=== PATIENT | female | born 1950 | race Asian ===

== ENCOUNTER 2024-05-20 08:38 | Outpatient (REF) | payer MEDICARE, MEDICAID, SELFPAY ==
[2024-05-20 17:41] LABS: MANUAL DIFF FLAG NO
[2024-05-20 18:19] LABS: Basophils Percent Auto 0.8 % (0-2); Eosinophils Absolute Auto 0.1 X10*3/uL (0.0-0.4); Eosinophils Percent Auto 2.6 % (0-4); Hematocrit 35.6 % (37.0-47.0); Hemoglobin 12.1 g/dl (12.0-16.0); Imm Gran Abs Auto 0.02 X10*3/uL (0.00-0.03); Imm Gran Pct Auto 0.4 % (0.0-0.4); Lymphocytes Absolute Auto 1.5 X10*3/uL (1.2-4.9); Mean Corpuscular Hemoglobin 31.7 pg (27.0-33.0); Mean Corpuscular Volume 93.2 fL (80.0-98.0); Monocytes Absolute Auto 0.3 X10*3/uL (0.1-1.2); Neutrophils Percent Auto 61.2 % (45-73); Platelet Count 305 X10*3/uL (160-400); Red Blood Count 3.82 X10*6/uL (4.20-5.50); Red Cell Distribution Width 13.1 % (11.0-16.0)
[2024-05-20 18:41] LABS: Alanine Aminotransferase 21 U/L (0-31); Albumin Level 4.3 g/dL (3.5-5.0); Aspartate Amino Transferase 27 U/L (5-31); C Reactive Protein < 0.10 mg/dL (< or = 0.50); Erythrocyte Sedimentation Rate 12 MM/HR (0-20); Estimated Glomerular Filt Rate > 60
[2024-05-20 18:57] LABS: Vitamin D 25-OH Total 63.3 ng/mL (>30)
[2024-05-21 05:53] LABS: HBS Num1 0.62 mIU/mL (0-7.99); HBc Num1 0.21 S/CO (0.00-0.79); HBsAGNum1 0.33 S/CO (0.00-0.99); Hepatitis B Core Antibody Nonreactive (Nonreactive); Hepatitis B Surface Antigen Negative (Negative); ~HepC Num1 0.19 S/CO (0.00-0.79); ~Hepatitis B Surface Antibody NONREACTIVE (Nonreactive); ~Hepatitis C Antibody Nonreactive (Nonreactive)
[2024-05-23 15:53] LABS: TS Negative Control Passed; TS Panel A 1; TS Panel B 0; TS Positive Control Passed; TSpotTB Negative (Negative)
[2024-05-27 14:39] LABS: Aldolase 2.6 U/L (<=8.1)
== END 2024-05-20 08:39 | disposition home or self-care (01) ==
LOC: HO.HKASLDS 08:38
PROVIDERS: PCP Physician Assistant Medical; Visit Provider Internal Medicine Rheumatology
DX: G72.49 Other inflammatory and immune myopathies, not elsewhere classified (principal); M81.0 Age-related osteoporosis without current pathological fracture; Z79.60 Long term (current) use of unspecified immunomodulators and immunosuppressants
CPT/HCPCS: 36415; 82040; 82085; 82306; 82310; 82550; 82565; 84450; 84460; 85025; 85652; 86140; 86481; 86704; 86706; 86803; 87340; 99212

== ENCOUNTER 2024-05-20 08:38 | Outpatient (AMB) | payer MEDICARE, MEDICAID, SELFPAY ==
--- NOTE | 2024-05-20 08:44 | MHC.OFFVIS ---
Vital Signs 05/20/24 08:46 Height 5 ft 2 in Weight 109 lb 4 oz BMI 20.0 BP 118/66 Blood Pressure Location Lt brachial Position Sitting Pulse 70 Pulse Source Pulse Oximeter Pulse Oximetry (%) 98 Oxygen Delivery Method Room Air Intake Visit Reasons: Arthralgia Intake Note: Patient presetns today for follow up on arthralgia. She was last seen in the office on 09/30/23. Radio Television Announcer Services: Radio Television Announcer Offered & Declined Radio Television Announcer Name: luis Accompanied by: Daughter Allergies statin Allergy (Mild, Uncoded 05/20/24 08:49) Muscle Pain bactrim Adverse Reaction (Unknown, Uncoded 05/20/24 08:49) Unknown HPI HPI Arthralgia: Details: She feels well. 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 Patient was living in active lifestyle in [facility]. She denies weakness, dysphagia, dyspnea, pleurisy, or any new rash. Denies joint pain. She does not take calcium or vitamin supplement. She does not consume dairy products. She does not like calcium tablets because they are large tablets. Last Prolia was in 05/2023. She missed January dose because she was in [facility]. [facility] Medical History (Updated 05/20/24 @ 10:35 by Paddy Hernandez MD) Arthralgia Social History (Updated 05/20/24 @ 08:53 by Carolina Camp CMA) Household Members: Spouse Alcohol intake: never Patient Tobacco Use Status: Never used Tobacco Review of Systems Const All systems reviewed & are unremarkable except as noted in HPI and below Physical Exam Vital Signs: Last Vital Signs Pulse 70 05/20/24 08:46 BP 118/66 05/20/24 08:46 Pulse Ox 98 05/20/24 08:46 Oxygen Delivery Method Room Air 05/20/24 08:46 BMI result Body Mass Index 20.0 Const Other: General: Comfortable CVS: RRR Respiratory: clear to auscultation bilaterally. Good respiratory effort Skin: No lesions seen MSK: No tenderness of any joint. Good range of motion of upper extremity and lower extremity. Power 5/5 upper extremity and lower extremity. 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 History of long-term atorvastatin use. Treated with IVIG. Methotrexate started due to elevation in CK 06/2022, which has stabilized CK levels. Asymptomatic. Code(s): G72.49 - Other inflammatory and immune myopathies, not elsewhere classified Category: Medical Plan: Continue to monitor clinically I have ordered labs for disease and drug monitoring on high-risk medication Continue methotrexate 20 mg once weekly Continue folic acid 1 mg daily Return to clinic in 3 months (2) Osteoporosis: Comment: Previously treated with alendronate for 10 years, abaloparatide 01/09/2021 18 months, Prolia 08/14/2023-, missed january 2024 Prolia dose because patient was in [facility]. Patient is unable to tolerate taking calcium and vitamin-D supplement due to pill size. Code(s): M81.0 - Age-related osteoporosis without current pathological fracture Category: Medical Qualifiers: Osteoporosis type: age-related Presence of current pathological fracture: without current pathological fracture Qualified Code(s): M81.0 - Age-related osteoporosis without current pathological fracture Plan: I recommend that she obtain OTC calcium 500 mg and vitamin-D 1000 IU gummies. Take 2 daily. Thomas MINOR. She will be scheduled for nurse visit once approved. Labs prior to Prolia ordered this visit: Calcium, vitamin-D, creatinine Bone density due after March 11, 2025 Orders: Orders Erythrocyte Sedimentation Rate Today G72.49 - Other inflammatory and immune myopathies, not elsewhere classified, M81.0 - Age-related osteoporosis without current pathological fracture Alanine Aminotransferase Today Z79.60 - termite control servicer (current) use of unspecified immunomodulators and immunosuppressants Aspartate Amino Transferase Today Z79.60 - [facility] (current) use of unspecified immunomodulators and immunosuppressants Hepatitis B,C Profile Today G72.49 - Other inflammatory and immune myopathies, not elsewhere classified, M81.0 - Age-related osteoporosis without current pathological fracture Complete Blood Count Auto Diff Today G72.49 - Other inflammatory and immune myopathies, not elsewhere classified, M81.0 - Age-related osteoporosis without current pathological fracture Creatine Kinase Total Today G72.49 - Other inflammatory and immune myopathies, not elsewhere classified, M81.0 - Age-related osteoporosis without current pathological fracture Calcium Today M81.0 - Age-related osteoporosis without current pathological fracture Albumin Level Today M81.0 - Age-related osteoporosis without current pathological fracture Aldolase Today G72.49 - Other inflammatory and immune myopathies, not elsewhere classified, M81.0 - Age-related osteoporosis without current pathological fracture C Reactive Protein Today G72.49 - Other inflammatory and immune myopathies, not elsewhere classified, M81.0 - Age-related osteoporosis without current pathological fracture Creatinine Today Z79.60 - termite control servicer (current) use of unspecified immunomodulators and immunosuppressants T Spot TB Today G72.49 - Other inflammatory and immune myopathies, not elsewhere classified, M81.0 - Age-related osteoporosis without current pathological fracture Vitamin D 25-OH Total Today M81.0 - Age-related osteoporosis without current pathological fracture Medications: New methotrexate sodium 20 mg (8 x 2.5 mg) PO QWEEK 96 tabs 0RF folic acid Replace previous prescriptions 1 mg PO DAILY 90 tabs 3RF Coding Level of Care Code Est Pt Level 4 (98566) Complex EM visit Add On G2211 Diagnoses Autoimmune necrotizing myopathy G72.49 Age-related osteoporosis without current pathological fracture M81.0 Osteoporosis type: age-related Presence of current pathological fracture: without current pathological fracture
[2024-05-20 08:46] VITALS: BP 118/66; PULSE 70; O2SAT 98
== END 2024-05-20 09:26 | disposition home or self-care (01) ==
PROVIDERS: PCP Physician Assistant Medical; Visit Provider Internal Medicine Rheumatology
DX: G72.49 Other inflammatory and immune myopathies, not elsewhere classified (principal); M81.0 Age-related osteoporosis without current pathological fracture
CPT/HCPCS: 99214; G2211

== ENCOUNTER 2024-06-03 13:07 | Outpatient (AMB) | payer MEDICARE, MEDICAID, SELFPAY ==
--- NOTE | 2024-06-03 14:03 | AM.OFFVISNUR ---
Intake Visit Reasons: prolia injection Allergies statin Allergy (Mild, Uncoded 05/20/24 08:49) Muscle Pain bactrim Adverse Reaction (Unknown, Uncoded 05/20/24 08:49) Unknown Office Meds Prolia 60 mg/mL subcutaneous syringe Performing Provider: Paddy Hernandez MD [place] [facility] [place] [facility] [facility] Administered by: Tod Lora RN on 06/03/24 14:03 Dose Route Admin Location Dispensed Lot Number Expiration Date [facility] Electrician Master 60 mg subcut 1 mL [id number] 11/19/26 92925-688-66 AMGEN Comments: Patient arrived accompanied by her daughter for Prolia 60 mg/mL subcutaneous injection. Patient tolerated the procedure well with no adverse reactions noted. Patient reminded of s/s to be aware of e.g. redness, tenderness, swelling, rash, or pain at the injection site; SOB, or dyspnea. Follow up appointment scheduled for November. Assessment & Plan Assessment & Plan Orders: Orders AMB Denosumab Injection Practice Supplied Today M81.0 - Age-related osteoporosis without current pathological fracture Medications: New Prolia (denosumab) 60 mg subcut ONCE 1 mL 0RF NS M81.0 - Age-related osteoporosis without current pathological fracture Coding
== END 2024-06-03 14:01 | disposition home or self-care (01) ==
PROVIDERS: PCP Physician Assistant Medical; Visit Provider Internal Medicine Rheumatology
DX: M81.0 Age-related osteoporosis without current pathological fracture (principal)

== ENCOUNTER → 2024-06-03 13:07 | Outpatient (BNVA) | payer MEDICARE, MEDICAID, SELFPAY | PROVIDERS: PCP Physician Assistant Medical; Visit Provider Internal Medicine Rheumatology | DX: M81.0 Age-related osteoporosis without current pathological fracture (principal) | CPT/HCPCS: 96372; J0897 ==

== ENCOUNTER 2024-08-18 08:59 | Outpatient (AMB) | payer MEDICARE, MEDICAID, SELFPAY ==
--- NOTE | 2024-08-18 09:06 | MHC.OFFVIS ---
Vital Signs 08/18/24 09:08 Height 5 ft 2.4 in Weight 106 lb 7.732 oz BMI 19.2 BP 130/68 Blood Pressure Location Rt brachial Position Sitting Pulse 64 Pulse Source Pulse Oximeter Pulse Oximetry (%) 99 Oxygen Delivery Method Room Air Intake Visit Reasons: Follow Up 3mo Intake Note: Patient presents today for follow up on arthralgia. Roller Inspector And Mender Name: gigi Information Interpreted: non-clinical & clinical Supervisory Clerk: Supervisory Clerk Present Accompanied by: Daughter Allergies statin Allergy (Mild, Uncoded 05/20/24 08:49) Muscle Pain bactrim Adverse Reaction (Unknown, Uncoded 05/20/24 08:49) Unknown HPI HPI Follow Up 3mo: Details: No new symptoms. She feels well. Denies recent infections, fevers, dyspnea, dysphagia, rash, joint symptoms. She is noncompliant with taking calcium and vitamin-D combination gummies. PFSH Medical History Arthralgia Social History Household Members: Spouse Alcohol intake: never Patient Tobacco Use Status: Never used Tobacco Review of Systems Const All systems reviewed & are unremarkable except as noted in HPI and below Physical Exam Vital Signs: Last Vital Signs Pulse 64 08/18/24 09:08 BP 130/68 08/18/24 09:08 Pulse Ox 99 08/18/24 09:08 Oxygen Delivery Method Room Air 08/18/24 09:08 BMI result Body Mass Index 19.2 Const Other: General: Comfortable CVS: RRR Respiratory: clear to auscultation bilaterally. Good respiratory effort Skin: No lesions seen MSK: No tenderness of any joint. Good range of motion of upper extremity and lower extremity. Power 5/5 upper extremity and lower extremity. 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 Assessment & Plan Assessment & Plan (1) Autoimmune necrotizing myopathy: Comment: Clinical remission on monotherapy with methotrexate. She has mild elevation in CK 04/2024. We discussed the importance of both monitoring clinically and serologically. Rheumatology history: + anti HMGCR ab. History of long-term atorvastatin use. Treated with IVIG. Methotrexate started due to elevation in CK 06/2022, which has stabilized CK levels. Code(s): G72.49 - Other inflammatory and immune myopathies, not elsewhere classified Category: Medical Plan: Continue to monitor clinically I have ordered labs for disease and drug monitoring on high-risk medication Continue methotrexate 20 mg once weekly Continue folic acid 1 mg daily Return to clinic in 3 months (2) Osteoporosis: Comment: Previously treated with alendronate for 10 years, abaloparatide 01/09/2021 18 months, Prolia 08/14/2023-, missed january 2024 Prolia dose because patient was in [facility]. Prolia restarted 05/2024. Patient is unable to tolerate taking calcium and vitamin-D supplement due to pill size. Encouraged patient to try calcium and vitamin-D gummies. Code(s): M81.0 - Age-related osteoporosis without current pathological fracture Category: Medical Qualifiers: Osteoporosis type: age-related Presence of current pathological fracture: without current pathological fracture Qualified Code(s): M81.0 - Age-related osteoporosis without current pathological fracture Plan: I recommend that she obtain OTC calcium 500 mg and vitamin-D 1000 IU gummies. Take 2 daily. Prolia every 6 months Labs prior to Prolia visit: Calcium, vitamin-D, creatinine needed before Prolia. I will order next visit Bone density due after March 11, 2025 Orders: Orders Alanine Aminotransferase Today Z79.60 - [facility]P (current) use of unspecified immunomodulators and immunosuppressants Aspartate Amino Transferase Today Z79.60 - technician terminal and repeater (current) use of unspecified immunomodulators and immunosuppressants Creatinine Today Z79.60 - USP (current) use of unspecified immunomodulators and immunosuppressants C Reactive Protein Today Z79.899 - Other intermediate teacher (current) drug therapy Complete Blood Count Auto Diff Today Z79.60 - technician terminal and repeater (current) use of unspecified immunomodulators and immunosuppressants Creatine Kinase Total Today G72.49 - Other inflammatory and immune myopathies, not elsewhere classified Aldolase Today G72.49 - Other inflammatory and immune myopathies, not elsewhere classified Erythrocyte Sedimentation Rate Today Z79.899 - Other skilled nursing (current) drug therapy Medications: Refilled methotrexate sodium 20 mg (8 x 2.5 mg) PO QWEEK 96 tabs 0RF Coding Level of Care Code Est Pt Level 4 (06630) Complex EM visit Add On G2211 Diagnoses Autoimmune necrotizing myopathy G72.49 Age-related osteoporosis without current pathological fracture M81.0 Osteoporosis type: age-related Presence of current pathological fracture: without current pathological fracture
[2024-08-18 09:08] VITALS: BP 130/68; PULSE 64; O2SAT 99; BMI 19.2
== END 2024-08-18 09:41 | disposition home or self-care (01) ==
LOC: HO.RHES 09:03
PROVIDERS: PCP Physician Assistant Medical; Visit Provider Internal Medicine Rheumatology
DX: G72.49 Other inflammatory and immune myopathies, not elsewhere classified (principal); M81.0 Age-related osteoporosis without current pathological fracture
CPT/HCPCS: 99214; G2211

== ENCOUNTER 2024-08-18 08:59 | Outpatient (REF) | payer MEDICARE, MEDICAID, SELFPAY ==
[2024-08-18 17:43] LABS: MANUAL DIFF FLAG NO
[2024-08-18 17:47] LABS: Basophils Percent Auto 0.5 % (0-2); Eosinophils Absolute Auto 0.1 X10*3/uL (0.0-0.4); Eosinophils Percent Auto 1.7 % (0-4); Hematocrit 37.6 % (37.0-47.0); Hemoglobin 12.2 g/dl (12.0-16.0); Imm Gran Abs Auto 0.04 X10*3/uL (0.00-0.03); Imm Gran Pct Auto 0.6 % (0.0-0.4); Lymphocytes Absolute Auto 1.1 X10*3/uL (1.2-4.9); Mean Corpuscular HGB Conc 32.4 g/dl (31.0-35.0); Mean Corpuscular Hemoglobin 31.4 pg (27.0-33.0); Mean Corpuscular Volume 96.9 fL (80.0-98.0); Mean Platelet Volume 10.3 fL (9.4-12.3); Monocytes Absolute Auto 0.3 X10*3/uL (0.1-1.2); Monocytes Percent Auto 4.7 % (2-11); Neutrophils Percent Auto 75.5 % (45-73); Platelet Count 285 X10*3/uL (160-400); Red Blood Count 3.88 X10*6/uL (4.20-5.50); Red Cell Distribution Width 13.3 % (11.0-16.0); White Blood Count 6.7 X10*3/uL (4.8-10.8)
[2024-08-18 18:04] LABS: Alanine Aminotransferase 20 U/L (0-31); Aspartate Amino Transferase 29 U/L (5-31); C Reactive Protein < 0.10 mg/dL (< or = 0.50); Estimated Glomerular Filt Rate > 60
[2024-08-18 18:44] LABS: Erythrocyte Sedimentation Rate 8 MM/HR (0-20)
[2024-08-25 14:44] LABS: Aldolase 6.1 U/L (<=8.1)
== END 2024-08-18 09:00 | disposition home or self-care (01) ==
LOC: HO.HKASLDS 08:59
PROVIDERS: PCP Physician Assistant Medical; Visit Provider Internal Medicine Rheumatology
DX: G72.49 Other inflammatory and immune myopathies, not elsewhere classified (principal); Z79.60 Long term (current) use of unspecified immunomodulators and immunosuppressants; Z79.899 Other long term (current) drug therapy
CPT/HCPCS: 36415; 82085; 82550; 82565; 84450; 84460; 85025; 85652; 86140; 99212

== ENCOUNTER 2024-11-11 08:57 | Outpatient (AMB) | payer MEDICARE, MEDICAID, SELFPAY ==
--- NOTE | 2024-11-11 09:00 | MHC.OFFVIS ---
Vital Signs 11/11/24 09:06 Height 5 ft 2 in Weight 105 lb 2 oz BMI 19.2 BP 130/52 L Blood Pressure Location Rt brachial Position Sitting Pulse 61 Pulse Source Pulse Oximeter Pulse Oximetry (%) 99 Oxygen Delivery Method Room Air Intake Visit Reasons: 3 months Intake Note: Patient presents today for follow up on arthralgia. Accompanied by: Daughter Allergies statin Allergy (Mild, Uncoded 05/20/24 08:49) Muscle Pain bactrim Adverse Reaction (Unknown, Uncoded 05/20/24 08:49) Unknown HPI HPI 3 months: Details: Doing well. No weakness, fatigue, dyspnea, dysphagia or rash. No recent infections. PFSH Medical History Arthralgia Social History Household Members: Spouse Alcohol intake: never Patient Tobacco Use Status: Never used Tobacco Physical Exam Vital Signs: Last Vital Signs Pulse 61 11/11/24 09:06 BP 130/52 L 11/11/24 09:06 Pulse Ox 99 11/11/24 09:06 Oxygen Delivery Method Room Air 11/11/24 09:06 BMI result Body Mass Index 19.2 Const Other: General: Comfortable CVS: RRR Respiratory: clear to auscultation bilaterally. Good respiratory effort Skin: No lesions seen MSK: No tenderness of any joint. Good range of motion of upper extremity and lower extremity. Power 5/5 upper extremity and lower extremity. 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 Assessment & Plan Assessment & Plan (1) Autoimmune necrotizing myopathy: Comment: Clinical remission on monotherapy with methotrexate. She has mild elevation CK is stable on MTX. We discussed the importance of both monitoring clinically and serologically. Rheumatology history: + anti HMGCR ab. History of long-term atorvastatin use. Treated with IVIG. Methotrexate started due to elevation in CK 06/2022, which has stabilized CK levels. Code(s): G72.49 - Other inflammatory and immune myopathies, not elsewhere classified Category: Medical Plan: Continue to monitor clinically I have ordered labs for disease and drug monitoring on high-risk medication Continue methotrexate 20 mg once weekly Continue folic acid 1 mg daily Return to clinic in 3 months (2) Osteoporosis: Comment: Previously treated with alendronate for 10 years, abaloparatide 01/09/2021 18 months, Prolia 08/14/2023-, missed january 2024 Prolia dose because patient was in [facility] Prolia restarted 05/2024. Patient is unable to tolerate taking calcium and vitamin-D supplement due to pill size. Encouraged patient to try calcium and vitamin-D gummies. Code(s): M81.0 - Age-related osteoporosis without current pathological fracture Category: Medical Qualifiers: Osteoporosis type: age-related Presence of current pathological fracture: without current pathological fracture Qualified Code(s): M81.0 - Age-related osteoporosis without current pathological fracture Plan: Continue OTC calcium 500 mg and vitamin-D 1000 IU gummies. Take 2 daily. Prolia every 6 months - next in November 2024 Labs prior to Prolia visit: Calcium, vitamin-D, creatinine needed before Prolia. Bone density due after March 11, 2025 - ordered Orders: Orders Erythrocyte Sedimentation Rate Today G72.49 - Other inflammatory and immune myopathies, not elsewhere classified, M81.0 - Age-related osteoporosis without current pathological fracture, Z79.1 - group home (current) use of non-steroidal anti-inflammatories (NSAID), Z79.899 - Other shelter (current) drug therapy Aspartate Amino Transferase Today G72.49 - Other inflammatory and immune myopathies, not elsewhere classified, M81.0 - Age-related osteoporosis without current pathological fracture, Z79.1 - group home (current) use of non-steroidal anti-inflammatories (NSAID), Z79.899 - Other shelter (current) drug therapy Creatinine Today G72.49 - Other inflammatory and immune myopathies, not elsewhere classified, M81.0 - Age-related osteoporosis without current pathological fracture, Z79.1 - group home (current) use of non-steroidal anti-inflammatories (NSAID), Z79.899 - Other shelter (current) drug therapy C Reactive Protein Today G72.49 - Other inflammatory and immune myopathies, not elsewhere classified, M81.0 - Age-related osteoporosis without current pathological fracture, Z79.1 - ad terminal makeup operator (current) use of non-steroidal anti-inflammatories (NSAID), Z79.899 - Other ocean transportation intermediary (current) drug therapy Calcium Today G72.49 - Other inflammatory and immune myopathies, not elsewhere classified, M81.0 - Age-related osteoporosis without current pathological fracture, Z79.1 - group home (current) use of non-steroidal anti-inflammatories (NSAID) Creatine Kinase Total Today G72.49 - Other inflammatory and immune myopathies, not elsewhere classified, M81.0 - Age-related osteoporosis without current pathological fracture, Z79.1 - ad terminal makeup operator (current) use of non-steroidal anti-inflammatories (NSAID) Aldolase Today G72.49 - Other inflammatory and immune myopathies, not elsewhere classified, M81.0 - Age-related osteoporosis without current pathological fracture, Z79.1 - ad terminal makeup operator (current) use of non-steroidal anti-inflammatories (NSAID) XR DEXA appendicular skeleton Today M81.0 - Age-related osteoporosis without current pathological fracture Complete Blood Count Man Dif Today G72.49 - Other inflammatory and immune myopathies, not elsewhere classified, M81.0 - Age-related osteoporosis without current pathological fracture, Z79.1 - group home (current) use of non-steroidal anti-inflammatories (NSAID), Z79.899 - Other shelter (current) drug therapy Alanine Aminotransferase Today G72.49 - Other inflammatory and immune myopathies, not elsewhere classified, M81.0 - Age-related osteoporosis without current pathological fracture, Z79.1 - ad terminal makeup operator (current) use of non-steroidal anti-inflammatories (NSAID), Z79.899 - Other shelter (current) drug therapy Albumin Level Today G72.49 - Other inflammatory and immune myopathies, not elsewhere classified, M81.0 - Age-related osteoporosis without current pathological fracture, Z79.1 - group home (current) use of non-steroidal anti-inflammatories (NSAID) Vitamin D 25-OH Total Today G72.49 - Other inflammatory and immune myopathies, not elsewhere classified, M81.0 - Age-related osteoporosis without current pathological fracture, Z79.1 - ad terminal makeup operator (current) use of non-steroidal anti-inflammatories (NSAID) XR DEXA axial skeleton Today M81.0 - Age-related osteoporosis without current pathological fracture Medications: Refilled methotrexate sodium 20 mg (8 x 2.5 mg) PO QWEEK 96 tabs 0RF Coding Level of Care Code Est Pt Level 4 (90502) Complex EM visit Add On G2211 Diagnoses Autoimmune necrotizing myopathy G72.49 Age-related osteoporosis without current pathological fracture M81.0 Osteoporosis type: age-related Presence of current pathological fracture: without current pathological fracture
[2024-11-11 09:06] VITALS: BP 130/52; PULSE 61; O2SAT 99; BMI 19.2
== END 2024-11-11 09:54 | disposition home or self-care (01) ==
LOC: HO.RHES 08:58
PROVIDERS: PCP Physician Assistant Medical; Visit Provider Internal Medicine Rheumatology
DX: G72.49 Other inflammatory and immune myopathies, not elsewhere classified (principal); M81.0 Age-related osteoporosis without current pathological fracture
CPT/HCPCS: 99214; G2211

== ENCOUNTER 2024-11-11 08:57 | Outpatient (REF) | payer MEDICARE, MEDICAID, SELFPAY ==
[2024-11-11 13:33] LABS: Baso%MD 0.7 %; Eos%MD 1.5 %; Hematocrit 36.6 % (37.0-47.0); Hemoglobin 12.1 g/dl (12.0-16.0); IG%MD 0.2 %; Lymph%MD 31.6 %; Mean Corpuscular HGB Conc 33.1 g/dl (31.0-35.0); Mean Corpuscular Hemoglobin 31.6 pg (27.0-33.0); Mean Corpuscular Volume 95.6 fL (80.0-98.0); Mono%MD 5.5 %; NRBC Abs Auto 0.000 X10*3/uL (0.0-0.012); NRBC Pct Auto 0.0 /100WBC (0.0-0.2); Neut%MD 60.5 %; Platelet Count 273 X10*3/uL (160-400); Red Blood Count 3.83 X10*6/uL (4.20-5.50); White Blood Count 4.5 X10*3/uL (4.8-10.8)
[2024-11-11 13:57] LABS: Alanine Aminotransferase 31 U/L (0-31); Albumin Level 4.4 g/dL (3.5-5.0); Aspartate Amino Transferase 34 U/L (5-31); Calcium 9.0 mg/dL (8.4-10.2); Estimated Glomerular Filt Rate > 60
[2024-11-11 14:16] LABS: Band Neutrophils Percent 0 % (3-5); Lymphocytes Absolute Manual 1.6 X10*3/uL (1.2-4.9); Lymphocytes Percent Manual 35 % (20-40); Monocytes Absolute Manual 0.1 X10*3/uL (0.1-1.2); Monocytes Percent Manual 3 % (2-11); Neutrophils Absolute Manual 2.8 X10*3/uL (2.0-8.3); Neutrophils Percent Manual 62 % (45-73)
[2024-11-11 14:17] LABS: RBC Morphology NORMAL
== END 2024-11-11 08:58 | disposition home or self-care (01) ==
LOC: HO.HKASLDS 08:57
PROVIDERS: PCP Physician Assistant Medical; Visit Provider Internal Medicine Rheumatology
DX: G72.49 Other inflammatory and immune myopathies, not elsewhere classified (principal); M81.0 Age-related osteoporosis without current pathological fracture; Z79.1 Long term (current) use of non-steroidal anti-inflammatories (NSAID); Z79.899 Other long term (current) drug therapy
CPT/HCPCS: 36415; 82040; 82085; 82306; 82310; 82550; 82565; 84450; 84460; 85007; 85027; 85652; 86140; 99212

== ENCOUNTER 2024-12-08 09:50 | Outpatient (AMB) | payer MEDICARE, MEDICAID, SELFPAY ==
--- NOTE | 2024-12-08 10:10 | AM.OFFVISNUR ---
Intake Visit Reasons: Prolia Injection Allergies statin Allergy (Mild, Uncoded 05/20/24 08:49) Muscle Pain bactrim Adverse Reaction (Unknown, Uncoded 05/20/24 08:49) Unknown Office Meds Prolia 60 mg/mL subcutaneous syringe Performing Provider: Paddy Hernandez MD [place] [facility] [place] Administered by: Tod Lora RN on 12/08/24 10:13 Dose Route Admin Location Dispensed Lot Number Expiration Date [employer] Glass Grinder 60 mg subcut 1 mL [id number] 12/10/26 58734-809-96 [facility] Total Dispensed Waste 1 mL 0 % Comments: Star Saima Jim, presents today for Prolia (Denosumab) 60 mg/mL injection for the treatment of osteoporosis. The patient has not had any recent fever or illness. The injection site to be used is without erythema, edema, and is clean, dry, and intact. She tolerated the procedure well. No injection site reactions noted. The patient was discharged from the practice. Assessment & Plan Assessment & Plan Orders: Orders AMB Denosumab Injection Practice Supplied Today M81.0 - Age-related osteoporosis without current pathological fracture Coding
== END 2024-12-08 10:10 | disposition home or self-care (01) ==
LOC: HO.RHES 09:51
PROVIDERS: PCP Physician Assistant Medical
DX: M81.0 Age-related osteoporosis without current pathological fracture (principal)

== ENCOUNTER → 2024-12-08 09:50 | Outpatient (BNVA) | payer MEDICARE, MEDICAID, SELFPAY | PROVIDERS: PCP Physician Assistant Medical | DX: M81.0 Age-related osteoporosis without current pathological fracture (principal) | CPT/HCPCS: 96372; J0897 ==

== ENCOUNTER 2025-02-05 09:58 | Outpatient (REF) | payer MEDICARE, MEDICAID, SELFPAY ==
[2025-02-05 13:33] LABS: MANUAL DIFF FLAG NO
[2025-02-05 13:54] LABS: Hematocrit 39.0 % (37.0-47.0); Hemoglobin 12.9 g/dl (12.0-16.0); Imm Gran Abs Auto 0.02 X10*3/uL (0.00-0.03); Imm Gran Pct Auto 0.3 % (0.0-0.4); Lymphocytes Absolute Auto 2.0 X10*3/uL (1.2-4.9); Mean Corpuscular HGB Conc 33.1 g/dl (31.0-35.0); Mean Corpuscular Hemoglobin 31.5 pg (27.0-33.0); Mean Corpuscular Volume 95.1 fL (80.0-98.0); NRBC Abs Auto 0.020 X10*3/uL (0.0-0.012); NRBC Pct Auto 0.3 /100WBC (0.0-0.2); Platelet Count 299 X10*3/uL (160-400); Red Blood Count 4.10 X10*6/uL (4.20-5.50); White Blood Count 7.0 X10*3/uL (4.8-10.8)
[2025-02-05 14:25] LABS: Aspartate Amino Transferase 36 U/L (5-31); Estimated Glomerular Filt Rate > 60
[2025-02-05 18:11] LABS: Alanine Aminotransferase 43 U/L (0-31)
== END 2025-02-05 09:59 | disposition home or self-care (01) ==
LOC: HO.HKASLDS 09:58
PROVIDERS: PCP Physician Assistant Medical; Visit Provider Internal Medicine Rheumatology
DX: Z79.899 Other long term (current) drug therapy (principal)
CPT/HCPCS: 36415; 82565; 84450; 84460; 85025; 85652; 86140

== ENCOUNTER 2025-02-11 11:54 | Outpatient (REF) | payer MEDICARE, MEDICAID, SELFPAY ==
[2025-02-11 18:12] LABS: Alanine Aminotransferase 33 U/L (0-31); Albumin Level 4.5 g/dL (3.5-5.0); Alkaline Phosphatase 72 U/L (39-117); Aspartate Amino Transferase 37 U/L (5-31); Total Protein 7.4 g/dL (6.5-8.0)
== END 2025-02-11 11:55 | disposition home or self-care (01) ==
LOC: HO.HKASLDS 11:54
PROVIDERS: PCP Physician Assistant Medical; Visit Provider Internal Medicine Rheumatology
DX: R74.01 Elevation of levels of liver transaminase levels (principal); G72.49 Other inflammatory and immune myopathies, not elsewhere classified
CPT/HCPCS: 36415; 80076; 82085; 82550

== ENCOUNTER 2025-02-18 13:25 | Outpatient (AMB) | payer MEDICARE, MEDICAID, SELFPAY ==
--- OUTSIDE RECORDS SUMMARY | 2025-02-12 23:59 | XMS_ITS | Continuity of Care Document ---
Author Organization [facility] Address [address] [place] [address]- Care Team Providers Care Acoustic Engineer Name Role Phone Cynthia Siegel Primary Care Physician [place] [facility] [place] 02/12/25 [facility] [address] [place] [address]- Attending Physician: Saul Rodriguez MD Encounter Type: Office Visit Allergies, Adverse Reactions, Alerts Substance Criticality Severity Reaction Reaction Severity Status lisinopril Cough Active Bactrim 1 Active statins Active 1rash and facial swelling Immunizations Given and Recorded Vaccine Date Status Refusal Reason influenza virus vaccine, inactivated 1 05/27/23 Gi emmanuel influenza virus vaccine, inactivated 02/05/22 Jimmie rded influenza virus vaccine, inactivated 2 02/14/12 Gi emmanuel SARS-CoV-2 (COVID-19) mRNA BNT-162b2 vac 05/18/21 Recorded SARS-CoV-2 (COVID-19) mRNA BNT-162b2 vac 04/27/21 Recorded pneumococcal 23-valent vaccine 11/20/18 Given pneumococcal 13-valent vaccine 11/19/17 Given tetanus/diphtheria/pertussis, acel(Tdap) 3 02/28/12 Given FluLaval (oldterm) 4 02/08/10 Given 1Result Comment: [facility] [id number] 2Admin Note: vis given dated 10/22/11 3Admin Note: vis given dated 05/15/2011 4Admin Note: vis given Medications Blood Pressure Monitor Blood Pressure Monitor, See Instructions, # 1 each, Refills 0, Tot. Refills 0, Maintenance, Blood Pressure Monitor Use as directed to check blood presssure once a day at least 1 hour after taking medications Lisinopril 10mg Dx: I10 Duration: Lifetime, 07/12/20 11:57:00 AM EDT, Supply Start Date: 07/12/20 Status: Ordered Medication Dispense Status: Completed Quantity: 1.0 Unit: each Total Allowed Fills: 1 Fills Dispensed: 0 calcium (as carbonate)-vitamin D 500 mg-400 intl units oral tablet, chewable 1 tablet, Chew, 2 times a day, with food, # 180 tablet, 4 Refills, Maintenance, 06/15/20 11:12:00 AMEST, Chew Tablet, [facility]/pharmacy #[id number], 1 tablet Chew 2 times a day,x90 days,Instr:with food, 159, cm, 11/20/18 9:07:00 EDT, Height Start Date: 06/15/20 Stop Date: 09/08/21 Status: Ordered Medication Dispense Status: Completed Quantity: 180.0 Unit: tablet Total Allowed Fills: 5 Fills Dispensed: 0 D3 1000 0 Refills, Maintenance, 10/09/22 8:52:00 AM EDT, Partial fill upon patient request if the prescription is for a schedule II opioid drug. Start Date: 10/09/22 Status: Ordered Medication Dispense Status: Completed Total Allowed Fills: 1 Fills Dispensed: 0 ezetimibe 10 mg oral tablet 1 tablet, By Mouth, Daily, # 90 tablet, 3 Refills, Maintenance, 07/30/24 4:23:00 PM EDT, [id number], 158.5, cm, 07/08/24 10:06:00 EDT, Height Start Date: 07/30/24 Status: Ordered Medication Dispense Status: Completed Quantity: 90.0 Unit: tablet Total Allowed Fills: 1 Fills Dispensed: 0 folic acid 1 mg oral tablet TAKE 1 TABLET BY MOUTH EVERY DAY Start Date: 10/09/22 Status: Ordered Medication Dispense Status: Completed Total Allowed Fills: 1 Fills Dispensed: 0 methotrexate 2.5 mg oral tablet 8 tablet = 20 mg, TAKE 8 TABLETS ONCE WEEKLY. INCREASE DOSE Start Date: 10/09/22 Status: Ordered Medication Dispense Status: Completed Total Allowed Fills: 1 Fills Dispensed: 0 Mental Status Mental Status Assessment Assessment Assessment Component Result Effecti ve Date Patient Health Questionnaire 2 item (PHQ-2) total score [Reported] 0 02/05/25 Problem List Condition Confirmation Course Effective Dates Status H ealth Status Informant KANDI inhibitor intolerance Confirmed Active HLD (hyperlipidemia) Confirmed Active HTN (hypertension) Confirmed Active Myositis right semi membraneous Confirmed Active OSTEOPOROSIS 1 Confirmed 09/29/09 Active Medicare annual wellness visit, subsequent Confirmed Active PHN - Post-herpetic neuralgia Confirmed Active Simple cyst of kidney 2 Confirmed Active Subclinical hypothyroidism Confirmed Active 1Fosamax started 11/06 2Left Kidney 3 cm, CT scan 08/2013 Vital Signs Most recent to oldest [Reference Range]: 1 Height 158.5 cm (02/05/25 7:13 AM) Weight 47.8 kg (02/05/25 7:13 AM) Oxygen Saturation [94-100 %] 100 % (02/05/25 7:13 AM) Pulse Rate [55-90 bpm] 65 bpm (02/05/25 7:13 AM) Body Mass Index [18.5-24.99 kg/m2] 19.03 kg/m2 (02/05/25 7:13 AM) Blood Pressure [90-138/55-84 mm Hg] 130/ 71mm Hg (02/05/25 7:13 AM) Mode of Delivery (Oxygen) Room air (02/05/25 7:13 AM) Blood pressure sites Arm, right (02/05/25 7:13 AM) Weight Obtained Via Standing scale (02/05/25 7:13 AM) Social History Social History Type Response Sexual Gender identity: Cho ose not to disclose. Smoking Status Never (less than 100 in lifetime) entered on: 06/15/20 Sex Sex Representation Female (finding) Patient Care team information Care Team Personnel Name: Tahira Chavira RN Position: [facility] RN Member Role: Primary Care Nurse Name: Cynthia Siegel Position: [facility] PCO Associate Professional Member Role: PCP Address: [address] [place] [address]- Telecom: Name: Vahe Pandey RN Position: [facility] RN Member Role: Primary Care Nurse Name: Addie Soares RN Position: [facility] RN Member Role: Primary Care Nurse Name: Amy Friend RN Position: [facility] AMB Nurse Member Role: Primary Care Nurse Care Team Related Persons Name: SAJAN HAWTHORNE Insurance Providers Guarantor name: [facility] Plan Information #: 1 Payer: MEDICARE B Payer Identifier: MARY Member Number: [id number] Group Number: [id number] Subscriber Identifier: [id number] Relationship to Subscriber: self Coverage Type: NA Coverage Verification Date: NA Telecom: Address: Health Plan Information #: 2 Payer: [employer] Payer Identifier: MARY Member Number: [id number] Group Number: [id number] Subscriber Identifier: [id number] Relationship to Subscriber: self Coverage Type: MEDICAID Coverage Verification Date: NA Telecom: Address:
--- NOTE | 2025-02-18 13:30 | MHC.OFFVIS ---
Vital Signs 02/18/25 13:32 Height 5 ft 2 in Weight 108 lb 3.951 oz BMI 19.8 BP 120/60 Blood Pressure Location Lt brachial Position Sitting Pulse 69 Pulse Source Pulse Oximeter Pulse Oximetry (%) 99 Oxygen Delivery Method Room Air Intake Visit Reasons: 3 Months Intake Note: Patient presents today for follow up on arthralgia. 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 She has mild elevation CK is stable on MTX. She has mild transaminitis on methotrexate. Methotrexate dose was reduced. Ezetimibe can also cause liver injury. Rheumatology history: + anti HMGCR ab. History of long-term atorvastatin use. Treated with IVIG. Methotrexate started due to elevation in CK 06/2022, which has stabilized CK levels. Code(s): G72.49 - Other inflammatory and immune myopathies, not elsewhere classified Category: Medical Plan: Continue to monitor clinically Continue methotrexate 17.5 mg once weekly Continue folic acid 1 mg daily Liver ultrasound with elastography ordered She will be following up with her PCP in regards to management of hyperlipidemia. I recommend that she discuss with her PCP considering holding ezetimibe and rechecking liver function tests to see if ezetimibe is contributing to liver injury. Return to clinic in 3 months (2) Osteoporosis: Comment: Previously treated with alendronate for 10 years, abaloparatide 01/09/2021 18 months, Prolia 08/14/2023-, missed january 2024 Prolia dose because patient was in [facility]. Prolia restarted 05/2024. Patient is unable to tolerate taking calcium and vitamin-D supplement due to pill size. Encouraged patient to try calcium and vitamin-D gummies. Code(s): M81.0 - Age-related osteoporosis without current pathological fracture Category: Medical Qualifiers: Osteoporosis type: age-related Presence of current pathological fracture: without current pathological fracture Qualified Code(s): M81.0 - Age-related osteoporosis without current pathological fracture Plan: Continue OTC calcium 500 mg and vitamin-D 1000 IU gummies. Take 2 daily. We discussed the importance of compliance. Prolia every 6 months - next in May 2024 Labs prior to Prolia visit: Calcium, vitamin-D, creatinine needed before Prolia. Bone density due after March 11, 2025 ordered last visit (3) Other assistant terminal manager (current) drug therapy: Code(s): Z79.899 - Other assistant terminal manager (current) drug therapy Category: Medical Plan: See above Orders: Orders Complete Blood Count Auto Diff 3 Months G72.49 - Other inflammatory and immune myopathies, not elsewhere classified, Z79.899 - Other assistant terminal manager (current) drug therapy Alanine Aminotransferase 3 Months G72.49 - Other inflammatory and immune myopathies, not elsewhere classified, Z79.899 - Other usp (current) drug therapy Aspartate Amino Transferase 3 Months G72.49 - Other inflammatory and immune myopathies, not elsewhere classified, Z79.899 - Other usp (current) drug therapy Erythrocyte Sedimentation Rate 3 Months G72.49 - Other inflammatory and immune myopathies, not elsewhere classified, Z79.899 - Other usp (current) drug therapy Creatinine 3 Months G72.49 - Other inflammatory and immune myopathies, not elsewhere classified, Z79.899 - Other assistant terminal manager (current) drug therapy C Reactive Protein 3 Months G72.49 - Other inflammatory and immune myopathies, not elsewhere classified, Z79.899 - Other assistant terminal manager (current) drug therapy Creatine Kinase Total 3 Months G72.49 - Other inflammatory and immune myopathies, not elsewhere classified Aldolase 3 Months G72.49 - Other inflammatory and immune myopathies, not elsewhere classified Vitamin D 25-OH Total 3 Months G72.49 - Other inflammatory and immune myopathies, not elsewhere classified, Z79.899 - Other usp (current) drug therapy Calcium 3 Months G72.49 - Other inflammatory and immune myopathies, not elsewhere classified, Z79.899 - Other assistant terminal manager (current) drug therapy Coding Level of Care Code Est Pt Level 4 (97225) Complex EM visit Add On G2211 Diagnoses Autoimmune necrotizing myopathy G72.49 Age-related osteoporosis without current pathological fracture M81.0 Osteoporosis type: age-related Presence of current pathological fracture: without current pathological fracture Other assistant terminal manager (current) drug therapy Z79.899
[2025-02-18 13:32] VITALS: BP 120/60; PULSE 69; O2SAT 99; BMI 19.8
== END 2025-02-18 14:07 | disposition home or self-care (01) ==
LOC: HO.RHES 13:25
PROVIDERS: PCP Physician Assistant Medical; Visit Provider Internal Medicine Rheumatology
DX: G72.49 Other inflammatory and immune myopathies, not elsewhere classified (principal); M81.0 Age-related osteoporosis without current pathological fracture; Z79.899 Other long term (current) drug therapy
CPT/HCPCS: 99214; G2211

== ENCOUNTER → 2025-02-18 13:25 | Outpatient (BNVA) | payer MEDICARE, MEDICAID, SELFPAY | PROVIDERS: PCP Physician Assistant Medical; Visit Provider Internal Medicine Rheumatology | DX: G72.49 Other inflammatory and immune myopathies, not elsewhere classified (principal); M81.0 Age-related osteoporosis without current pathological fracture; Z79.631 Long term (current) use of antimetabolite agent; Z79.899 Other long term (current) drug therapy | CPT/HCPCS: 99212 ==

== ENCOUNTER 2025-04-08 10:26 | Outpatient (REF) | payer MEDICARE, MEDICAID, SELFPAY ==
--- NOTE | ~2025-04-08 | MM_ITS ---
EXAMINATION: DXA BONE DENSITY AXIAL HISTORY: M81.0 - Age-related osteoporosis without current pathological fracture TECHNIQUE: GoodBelly Dual energy absorptiometry (DEXA) of the lumbar spine, total left hip, and femoral neck was performed. COMPARISON: There are no prior studies for comparison. FINDINGS: The bone mineral density of the lumbar spine is 1.050 g/cm2, corresponding to a T-score of -1.1, and a Z-score of 1.2. This is indicative of osteopenia. The bone mineral density of the left total hip is 0.734 g/cm2, corresponding to a T-score of -2.2, and a Z-score of -0.1. This is indicative of osteopenia. The bone mineral density of the left femoral neck is 0.639 g/cm2, corresponding to a T-score of -2.9, and a Z-score of -0.6. This is indicative of osteoporosis. MM/XR DEXA axial skeleton IMPRESSION: Based on bone mineral density, and according to World Health Organization (WHO) criteria, the diagnosis is consistent with osteoporosis. Statistically, 68% of repeat scans fall within 1 SD (+/- 0.010 g/cm2 for AP spine L1-L4) and 1 SD (+/- 0.012 g/cm2 for femur total) FRAX is a trademark of the [employer] [place] [employer] Met[employer] Disease, a World Health Organization (WHO) Collaborating Center. Electronically signed by: Trell Curtis MD 04/08/2025 11:34 AM EST
== END 2025-04-08 10:27 | disposition home or self-care (01) ==
LOC: HO.MAMMO 10:26
PROVIDERS: PCP Physician Assistant Medical; Visit Provider Internal Medicine Rheumatology
DX: M81.0 Age-related osteoporosis without current pathological fracture (principal)
CPT/HCPCS: 77080

== ENCOUNTER → 2025-04-08 11:30 | Outpatient (BNV) | payer MEDICARE, MEDICAID, SELFPAY | PROVIDERS: PCP Physician Assistant Medical; Visit Provider Radiology Diagnostic Radiology | DX: E28.39 Other primary ovarian failure (principal) | CPT/HCPCS: 77080 ==